=== PATIENT | female | born 1950 | race Native Hawaiian/Other Pacific Islander ===

== ENCOUNTER 2020-02-20 00:39 | Emergency (ER) | payer MEDICARE, BC ==
[~2020-02-20] VITALS: Ht 154.9 cm; Wt 79.5 kg
[2020-02-20] MEDS ORDERED: acetaminophen 325mg tablet PO ONE (01:15)
[2020-02-20] MEDS ORDERED: dexamethasone 4mg/ml inj IM ONE (01:15)
[2020-02-20] MEDS ORDERED: famotidine 20mg tablet PO ONE (01:15)
[2020-02-20] MEDS ORDERED: diphenhydrAMINE 25mg capsule PO ONE (01:15)
[2020-02-20 01:31] VITALS: BP 157/85
[2020-02-21] MEDS ORDERED: CITA20TA28 PO (04:45)
[2020-02-21] MEDS ORDERED: SYN0.088T PO (04:45)
[2020-02-21] MEDS ORDERED: HCTZ25T PO (04:45)
[2020-02-21] MEDS ORDERED: LOSA25TA96 PO (04:45)
[2020-02-21] MEDS ORDERED: ASPI-10 PO (04:46)
[2020-02-21] MEDS ORDERED: EPIN0.3P3 IM (13:12)
[2020-02-21] MEDS ORDERED: PRED10TA23 PO (13:12)
== END 2020-02-20 01:37 | disposition home or self-care (01) ==
LOC: ER 00:40
DX: L25.9 Unspecified contact dermatitis, unspecified cause (principal); L50.8 Other urticaria; Z88.2 Allergy status to sulfonamides
CPT/HCPCS: 96372; 99284; J1100; Q0163

== ENCOUNTER 2020-02-20 21:51 | Observation (INO) | payer MEDICARE, BC ==
[~2020-02-20] VITALS: Ht 154.9 cm; Wt 77.3 kg
[2020-02-20] MEDS ORDERED: normal saline 1000ML IV soln IVB STA (22:42)
[2020-02-20] MEDS ORDERED: famotidine/PF 10 mg/ml inj IV ONE (22:45)
[2020-02-20] MEDS ORDERED: tranexamic acid 100mg/ml inj. IV ONE (22:45)
[2020-02-20] MEDS ORDERED: methylPREDNISolone sod succ 125mg/2ml vial IV ONE (22:45)
[2020-02-20] MEDS ORDERED: triamcinolone acetonide 40mg/ml inj IM ONE (22:45)
--- NOTE | 2020-02-20 22:55 | NUR ---
Pt wondering why I started her IV in her [place] "[place]. You should read up on it."
[2020-02-21] VITALS (7 sets, daily range): BP systolic 99–138; BP diastolic 56–76
[2020-02-21] MEDS ORDERED: diphenhydrAMINE 50 mg/ml inj IV ONE (00:20)
[2020-02-21] MEDS ORDERED: epiNEPHrine 1 mg/ml inj SQ ONE (00:20)
[2020-02-21] MEDS ORDERED: LORazepam 2 mg/ml vial IV ONE (00:25)
[2020-02-21] MEDS ORDERED: acetaminophen 325mg tablet PO PRN (04:10)
[2020-02-21] MEDS ORDERED: mag hydrox/Alum hydrox/simeth 30ml oral suspension PO PRN (04:10)
[2020-02-21] MEDS ORDERED: magnesium hydroxide 30ml (MOM) UD suspension PO PRN (04:10)
[2020-02-21] MEDS ORDERED: HYDROcodone/acetaminophen 5mg/325mg tablet PO PRN (04:10)
[2020-02-21] MEDS ORDERED: ondansetron/PF 4mg/2ml inj IV PRN (04:10)
[2020-02-21] MEDS ORDERED: diphenhydrAMINE 25mg capsule PO PRN (04:15)
[2020-02-21 04:35] LABS: BASOPHILS % (AUTO) 0.2 % (0-1); EOSINOPHILS % (AUTO) 0 % (0-6); HEMATOCRIT 32.3 % (35.0-45.0); HEMOGLOBIN 10.8 g/dl (12.0-16.0); LYMPHOCYTES # (AUTO) 0.5 X10'3 (1.1-4.8); LYMPHOCYTES % (AUTO) 6.3 % (21-51); MEAN CORPUSCULAR HEMOGLOBIN 32.8 PG (27.0-31.0); MEAN CORPUSCULAR HGB CONC 33.5 g/dL (33.0-36.5); MEAN CORPUSCULAR VOLUME 97.7 FL (78-98); MONOCYTES # (AUTO) 0.3 X10'3 (0-0.9); MONOCYTES % (AUTO) 3.8 % (2-12); NEUTROPHILS # (AUTO) 6.8 X10'3 (1.8-7.7); NEUTROPHILS % (AUTO) 89.7 % (42-75); PLATELET COUNT 373 X10'3 (140-440); RED BLOOD COUNT 3.31 X10'6 (4.20-5.60); RED CELL DISTRIBUTION WIDTH 14.4 % (11.5-14.5); WHITE BLOOD COUNT 7.6 X10'3 (4.5-11.0)
[2020-02-21 04:35] LABS: CLARITY,URINE CLEAR (Clear); COLOR,URINE YELLOW (Yellow); GLUCOSE, URINE NEGATIVE (Neg); KETONES,URINE NEGATIVE (Neg); LEUKOCYTE ESTERASE ,URINE NEGATIVE (Neg); NITRITES, URINE NEGATIVE (Neg); OCCULT BLOOD,URINE MODERATE (Neg); PROTEIN,URINE NEGATIVE (Neg); UROBILINOGEN,URINE 0.2 E.U/dL (0.2-1.0)
[2020-02-21 04:44] LABS: ALANINE AMINOTRANSFERASE 17 U/L (12-78); ALBUMIN 3.6 G/DL (3.4-5.0); ALBUMIN/GLOBULIN RATIO 0.9 (1.1-1.5); ALKALINE PHOSPHATASE 68 IU/L (46-116); ANION GAP 11 (8-16); ASPARTATE AMINO TRANSFERASE 14 U/L (10-37); BILIRUBIN,TOTAL 0.2 MG/DL (0.1-1.0); BLOOD UREA NITROGEN 14 MG/DL (7-18); BUN/CREATININE RATIO 12.8 (6.6-38.0); CALCIUM 8.1 MG/DL (8.5-10.1); CHLORIDE 106 MMOL/L (99-107); CREATININE 1.09 MG/DL (0.40-0.90); GLUCOSE 184 MG/DL (70-104); POTASSIUM 3.1 MMOL/L (3.5-5.1); SODIUM 142 MMOL/L (135-145); TOTAL CARBON DIOXIDE 25.3 MMOL/L (24-32); TOTAL PROTEIN 7.7 G/DL (6.4-8.2); eGFR 50 ML/MIN
[2020-02-21 04:45] LABS: UA COLLECTION TYPE CLN CATCH MIDSTREAM
[2020-02-21] MEDS ORDERED: LOSA25TA96 PO (04:45)
[2020-02-21] MEDS ORDERED: HCTZ25T PO (04:45)
[2020-02-21] MEDS ORDERED: CITA20TA28 PO (04:45)
[2020-02-21] MEDS ORDERED: SYN0.088T PO (04:45)
[2020-02-21 04:46] LABS: BACTERIA,URINE 1+ /HPF (Neg); RBC,URINE 0-2 /HPF (0-2); SQUAMOUS EPITHELIAL CELL,UR MODERATE /LPF (FEW); WBC,URINE 0-4 /HPF (0-4)
[2020-02-21] MEDS ORDERED: ASPI-10 PO (04:46)
--- NOTE | 2020-02-21 05:15 | NUR ---
Patient in room [id number]. I have received report from Dunia AZUL and had the opportunity to ask questions and assume patient care.
--- NOTE | 2020-02-21 06:11 | NUR ---
Problems reprioritized. Patient report given, questions answered & plan of care reviewed with Ernestina AZUL.
--- NOTE | 2020-02-21 06:18 | NUR ---
Patient in room [facility]. I have received report from LATHA Vizcarra and had the opportunity to ask questions and assume patient care.
[2020-02-21] MEDS ORDERED: methylPREDNISolone sod succ/PF 40mg inj. IV SCH (08:00)
--- NOTE | 2020-02-21 09:11 | NUR ---
pt took 1 Benadryl caps. states 2 caps dries her mouth.
[2020-02-21] MEDS ORDERED: EPIN0.3P3 IM (13:12)
[2020-02-21] MEDS ORDERED: PRED10TA23 PO (13:12)
--- NOTE | 2020-02-21 14:53 | NUR ---
Pt D/C'd home in stable condition. K+ level 3.1 okayed by . education material about potassium rich food provided. Discharge and medication instruction given to pt. IV removed with cannula intact. Pt was escorted on W/C to main lobby; left he hospital via private vehicle accompanied by .
== END 2020-02-21 14:40 | disposition home or self-care (01) ==
LOC: ER 21:52 → ED HOLD 02-21 04:08 → UNDOADMOB 02-21 04:08 → ED HOLD 02-21 05:22 → SUR 3N 02-21 05:22 → UNDODISOB 02-21 14:40
PROVIDERS: ADMIT Internal Medicine; ATTEND Internal Medicine
DX: T78.3XXA Angioneurotic edema, initial encounter (principal); I10 Essential (primary) hypertension; M19.012 Primary osteoarthritis, left shoulder; M17.11 Unilateral primary osteoarthritis, right knee; M19.071 Primary osteoarthritis, right ankle and foot; Z96.651 Presence of right artificial knee joint; Z79.82 Long term (current) use of aspirin; Z79.899 Other long term (current) drug therapy; Z88.2 Allergy status to sulfonamides; X58.XXXA Exposure to other specified factors, initial encounter; Y93.89 Activity, other specified; Y92.89 Other specified places as the place of occurrence of the external cause
CPT/HCPCS: 36415; 36430; 80053; 81001; 85025; 86885; 86900; 86901; 87081; 96372; 96374; 96375; 96376; 99285; G0378; J0171; J1200; J2060; J2920; J2930; J3301; J3490; J7030; P9059; Q0163